=== PATIENT | female | born 1945 | race Caucasian/White ===

== ENCOUNTER 2017-04-14 11:39 | Emergency (ER) | payer MEDICARE, MEDICAID ==
[~2017-04-14] VITALS: Ht 152.4 cm; Wt 63.6 kg
[~2017-04-14 11:39] MED LIST: AMLO-512 PO; ASPI-825 PO; ATEN25TA PO; BENA40TA3 PO; CARV12 PO; LISI-660 PO; METF500T4 PO; SIMV-260 PO; URSO300C7 PO
[2017-04-14 14:06] LABS: BASOPHILS % (AUTO) 0.5 % (0.0-2.0); EOSINOPHILS % (AUTO) 1.1 % (1.0-6.0); HEMATOCRIT 29.3 % (36-46); LYMPHOCYTES # (AUTO) 0.7 K/uL (1.0-4.8); LYMPHOCYTES % (AUTO) 7.8 % (22.0-44.0); MEAN CORPUSCULAR HEMOGLOBIN 32.5 pg (26.0-34.0); MEAN CORPUSCULAR HGB CONC 34.3 G/dL (31.0-37.0); MEAN CORPUSCULAR VOLUME 95 fL (80-100); MONOCYTES # (AUTO) 1.1 K/uL (0.1-1.0); MONOCYTES % (AUTO) 12.2 % (2.0-9.0); NEUTROPHILS # (AUTO) 7.1 K/uL (1.8-7.7); NEUTROPHILS % (AUTO) 78.4 % (40.0-70.0); PLATELET COUNT (AUTO) 155 K/uL (150-450); RED BLOOD CELL COUNT(AUTO) 3.09 MIL/uL (4.00-5.20); RED CELL DISTRIBUTION WIDTH 12.8 % (11.5-14.5)
[2017-04-14 14:16] LABS: CALCIUM, TOTAL 8.4 mg/dL (8.8-10.5); CREATININE 1.08 mg/dL (0.60-1.30); POTASSIUM 3.8 mmol/L (3.5-5.1)
[2017-04-14] MEDS ORDERED: PIOG45TA4 PO (14:22)
[2017-04-14] MEDS ORDERED: CHL25 PO (14:22)
[2017-04-14] MEDS ORDERED: VITAD1000 PO (14:22)
[2017-04-14] MEDS ORDERED: FENO160 PO (14:22)
[2017-04-14] MEDS ORDERED: CILO100T PO (14:22)
[2017-04-14] MEDS ORDERED: ALEN70TA48 PO (14:22)
[2017-04-14 14:26] LABS: PROTHROMBIN TIME 10.7 SEC (9.4-11.6)
[2017-04-14] MEDS ORDERED: ONDANSETRON HCL 4 MG/2 ML VIAL IVP ONE (15:15)
[2017-04-14] MEDS ORDERED: MORPHINE SULFATE 4 MG/ML SYRINGE IVP ONE (15:15)
[2017-04-14 16:05] VITALS: BP 142/55
== END 2017-04-14 16:40 | disposition short-term general hospital (02) ==
LOC: EMS 11:40
DX: S42.102A Fracture of unspecified part of scapula, left shoulder, initial encounter for closed fracture (principal); S70.311A Abrasion, right thigh, initial encounter; S00.81XA Abrasion of other part of head, initial encounter; I10 Essential (primary) hypertension; E78.00 Pure hypercholesterolemia, unspecified; E11.9 Type 2 diabetes mellitus without complications; M19.90 Unspecified osteoarthritis, unspecified site; X58.XXXA Exposure to other specified factors, initial encounter; Y93.89 Activity, other specified; Y92.89 Other specified places as the place of occurrence of the external cause; Y99.8 Other external cause status
CPT/HCPCS: 36415; 70450; 71046; 72125; 72170; 73030; 73552; 80048; 85025; 85610; 96374; 96375; 99285; J2270; J2405